=== PATIENT | female | born 1935 | race Caucasian/White ===

== ENCOUNTER 2017-07-22 20:23 | Observation (INO) | payer MEDICARE, SELFPAY ==
[~2017-07-22] VITALS: Ht 165.1 cm; Wt 86.2 kg
[~2017-07-22 20:23] MED LIST: ACET325 PO; BI-EST TOP; BIEST TOP; CHOL10002 PO; CODACE30 PO; COLE625 PO; CRUTCH2 USE; DOCU100 PO; ESTR.9; HYDACE5 PO; HYDR1TAB94 PO; L-LYSINE500 MG PO; MELA3 PO; METO100ER; Nexium40 MG PO; Norco 5-325 Ta1 EACH PO; OXYC5 PO; PROM25 PO; RXHYDACE PO; SERT100 PO; VENL75; VITAMIN B12 SPRAY SL; WARF4 PO; XARELTO10 MG PO; [UNRECOGNIZED DRUG - CODE] PO; [UNRECOGNIZED DRUG - OTHER] PO; [UNRECOGNIZED DRUG - OTHER] PO; [UNRECOGNIZED DRUG - REMARK]
[2017-07-22] MEDS ORDERED: Flonase 0.05% N16 GM (20:34)
[2017-07-22 20:49] LABS: BASOPHILS ABSOLUTE AUTO 0.01 K/mm3 (0.00-0.23); BASOPHILS PERCENT AUTO 0 % (0-2); EOSINOPHILS PERCENT AUTO 0 % (0-6); Hematocrit 41.5 % (33.0-51.0); Hemoglobin 13.1 g/dL (11.5-16.0); IMMATURE GRAN PERCENT AUTO 0 % (0-1); LYMPHOCYTES ABSOLUTE AUTO 0.49 K/mm3 (0.84-5.20); LYMPHOCYTES PERCENT AUTO 15 % (21-46); MONOCYTES ABSOLUTE AUTO 0.25 K/mm3 (0.16-1.47); MONOCYTES PERCENT AUTO 8 % (4-13); Mean Corpuscular HGB 27.5 pg (26.0-34.0); Mean Corpuscular HGB Conc 31.6 g/dL (31.5-36.5); Mean Corpuscular Volume 87 fL (80-100); Mean Platelet Volume 11.5 fL (9.1-12.4); NEUTROPHILS ABSOLUTE AUTO 2.59 K/mm3 (1.96-9.15); NEUTROPHILS PERCENT AUTO 78 % (41-73); Platelet Count 146 K/mm3 (150-400); RDW Coefficient Variation 14.3 % (11.7-14.2); Red Blood Cell Count 4.76 M/mm3 (3.80-5.20); White Blood Cell Count 3.34 K/mm3 (4.00-11.30)
[2017-07-22 20:59] LABS: PCO2 Arterial 36.5 mmHg (35-45); PO2 Arterial 58.4 mmHg (80-100); pH Blood Arterial 7.43 (7.35-7.45)
[2017-07-22 21:05] LABS: Alanine Aminotransfer (ALT/SGP 19 U/L (12-78); Albumin, Blood 3.5 g/dL (3.4-5.0); Albumin/Globulin Ratio 1.1 (0.8-1.8); Alk Phos 72 U/L (50-136); Anion Gap 10 mmol/L (6-16); Aspartate Aminotrans (AST/SGOT 19 U/L (12-37); Bilirubin, Total 0.4 mg/dL (0.1-1.0); Blood Urea Nitrogen 10 mg/dL (8-24); Bun/Creatinine Ratio 12.4 (12.0-20.0); CO2, Blood 25 mmol/L (21-32); Calcium, Blood 8.2 mg/dL (8.5-10.1); Chloride, Blood 103 mmol/L (98-108); Globulin, Blood 3.3 g/dL (2.2-4.0); Glomerular Filtration Rate >60 (60-); Glucose, Blood 110 mg/dL (70-99); Potassium, Blood 3.2 mmol/L (3.5-5.5); Sodium, Blood 138 mmol/L (136-145); Total Protein, Blood 6.8 g/dL (6.4-8.2); Troponin I 0.034 ng/mL (0.000-0.040)
[2017-07-22 21:10] LABS: Influenza A Negative (NEGATIVE); Influenza B Positive (NEGATIVE)
[2017-07-23 09:57] LABS: BASOPHILS ABSOLUTE AUTO 0.01 K/mm3 (0.00-0.23); BASOPHILS PERCENT AUTO 0 % (0-2); EOSINOPHILS PERCENT AUTO 0 % (0-6); Hematocrit 39.8 % (33.0-51.0); Hemoglobin 12.9 g/dL (11.5-16.0); IMMATURE GRAN ABSOLUTE AUTO 0.01 K/mm3 (0.00-0.10); IMMATURE GRAN PERCENT AUTO 0 % (0-1); LYMPHOCYTES ABSOLUTE AUTO 0.51 K/mm3 (0.84-5.20); LYMPHOCYTES PERCENT AUTO 20 % (21-46); MONOCYTES ABSOLUTE AUTO 0.24 K/mm3 (0.16-1.47); MONOCYTES PERCENT AUTO 10 % (4-13); Mean Corpuscular HGB 27.9 pg (26.0-34.0); Mean Corpuscular HGB Conc 32.4 g/dL (31.5-36.5); Mean Corpuscular Volume 86 fL (80-100); Mean Platelet Volume 11.2 fL (9.1-12.4); NEUTROPHILS ABSOLUTE AUTO 1.74 K/mm3 (1.96-9.15); NEUTROPHILS PERCENT AUTO 69 % (41-73); Platelet Count 121 K/mm3 (150-400); RDW Coefficient Variation 14.5 % (11.7-14.2); RDW Standard Deviation 45.8 fL (35.1-46.3); Red Blood Cell Count 4.62 M/mm3 (3.80-5.20); White Blood Cell Count 2.51 K/mm3 (4.00-11.30)
[2017-07-23 10:12] LABS: Alanine Aminotransfer (ALT/SGP 18 U/L (12-78); Albumin, Blood 3.4 g/dL (3.4-5.0); Albumin/Globulin Ratio 1.1 (0.8-1.8); Alk Phos 70 U/L (50-136); Anion Gap 9 mmol/L (6-16); Aspartate Aminotrans (AST/SGOT 25 U/L (12-37); Bilirubin, Total 0.5 mg/dL (0.1-1.0); Blood Urea Nitrogen 12 mg/dL (8-24); Bun/Creatinine Ratio 16.3 (12.0-20.0); CO2, Blood 23 mmol/L (21-32); Calcium, Blood 8.2 mg/dL (8.5-10.1); Chloride, Blood 106 mmol/L (98-108); Creatinine, Blood 0.74 mg/dL (0.40-1.00); Globulin, Blood 3.1 g/dL (2.2-4.0); Glomerular Filtration Rate >60 (60-); Glucose, Blood 93 mg/dL (70-99); Potassium, Blood 3.4 mmol/L (3.5-5.5); Sodium, Blood 138 mmol/L (136-145); Total Protein, Blood 6.5 g/dL (6.4-8.2)
[2017-07-23] MEDS ORDERED: ACET325 PO (12:56)
[2017-07-23] MEDS ORDERED: ONDA4ODT MM (12:56)
[2017-07-23] MEDS ORDERED: OSEL75CA PO (12:56)
== END 2017-07-23 13:24 | disposition home or self-care (01) ==
LOC: ER 20:23 → ERHOLD 20:24 → ER 21:39 → ERHOLD 07-23 13:24
PROVIDERS: Emergency Medicine; Internal Medicine
DX: J10.1 Influenza due to other identified influenza virus with other respiratory manifestations (principal); J96.01 Acute respiratory failure with hypoxia; J44.9 Chronic obstructive pulmonary disease, unspecified; F41.9 Anxiety disorder, unspecified; F32.9 Major depressive disorder, single episode, unspecified; K21.9 Gastro-esophageal reflux disease without esophagitis; E78.5 Hyperlipidemia, unspecified; G47.33 Obstructive sleep apnea (adult) (pediatric); I47.2 Ventricular tachycardia; Z87.01 Personal history of pneumonia (recurrent); Z98.890 Other specified postprocedural states; Z95.0 Presence of cardiac pacemaker; Z90.49 Acquired absence of other specified parts of digestive tract; Z79.899 Other long term (current) drug therapy; Z88.2 Allergy status to sulfonamides; Z88.8 Allergy status to other drugs, medicaments and biological substances
CPT/HCPCS: 36415; 36600; 71046; 80053; 82803; 83605; 84484; 85025; 87040; 87804; 93005; 93010; 96372; 99285; J1650; J3480; J7030

== ENCOUNTER → 2017-12-19 | Outpatient (CLI) | payer MEDICARE, SELFPAY ==
[~2017-12-19] MED LIST changes: +Flonase 0.05% N16 GM; +ONDA4ODT MM; +OSEL75CA PO
[2017-12-20 14:48] LABS: Stool Occult Bld Immuno 1 Negative (NEGATIVE); Stool Occult Bld Immuno 2 Negative (NEGATIVE)
== END | disposition home or self-care (01) ==
LOC: OLS 16:40 → LAB SHORT 16:40
PROVIDERS: Internal Medicine Gastroenterology
DX: K57.90 Diverticulosis of intestine, part unspecified, without perforation or abscess without bleeding (principal); Z86.010 Personal history of colon polyps
CPT/HCPCS: 82274

== ENCOUNTER 2017-12-27 11:42 | Day surgery (SDC) | payer MEDICARE ==
[~2017-12-27] VITALS: Ht 165.1 cm; Wt 84.1 kg
== END 2017-12-27 14:30 | disposition home or self-care (01) ==
LOC: ORSCSDS 11:42
PROVIDERS: Internal Medicine Gastroenterology
PROC: 0D758ZZ Dilation of Esophagus, Via Natural or Artificial Opening Endoscopic (ICD-10-PCS; principal; 2017-12-27 13:00)
PROC: 0DB68ZX Excision of Stomach, Via Natural or Artificial Opening Endoscopic, Diagnostic (ICD-10-PCS; principal; 2017-12-27 13:00)
PROC: 0DB58ZX Excision of Esophagus, Via Natural or Artificial Opening Endoscopic, Diagnostic (ICD-10-PCS; principal; 2017-12-27 13:00)
DX: R13.14 Dysphagia, pharyngoesophageal phase (principal); K31.7 Polyp of stomach and duodenum; Z87.11 Personal history of peptic ulcer disease; G47.33 Obstructive sleep apnea (adult) (pediatric); Z79.899 Other long term (current) drug therapy
CPT/HCPCS: 87081; 88305; 88342; J7120

== ENCOUNTER 2019-06-01 18:43 | Emergency (ER) | payer MEDICARE ==
[~2019-06-01] VITALS: Ht 165.1 cm; Wt 87.5 kg
[2019-06-01] MEDS ORDERED: MELATONIN5 M1 (19:37)
[2019-06-01 19:55] LABS: BASOPHILS ABSOLUTE AUTO 0.01 K/mm3 (0.00-0.23); BASOPHILS PERCENT AUTO 0 % (0-2); EOSINOPHILS ABSOLUTE AUTO 0.02 K/mm3 (0.00-0.68); EOSINOPHILS PERCENT AUTO 1 % (0-6); Hematocrit 47.1 % (33.0-51.0); IMMATURE GRAN PERCENT AUTO 0 % (0-1); LYMPHOCYTES ABSOLUTE AUTO 1.14 K/mm3 (0.84-5.20); LYMPHOCYTES PERCENT AUTO 26 % (21-46); MONOCYTES ABSOLUTE AUTO 0.38 K/mm3 (0.16-1.47); MONOCYTES PERCENT AUTO 9 % (4-13); Mean Corpuscular HGB 29.6 pg (26.0-34.0); Mean Corpuscular HGB Conc 31.8 g/dL (31.5-36.5); Mean Corpuscular Volume 93 fL (80-100); Mean Platelet Volume 11.4 fL (9.1-12.4); NEUTROPHILS ABSOLUTE AUTO 2.78 K/mm3 (1.96-9.15); NEUTROPHILS PERCENT AUTO 64 % (41-73); Platelet Count 202 K/mm3 (150-400); RDW Coefficient Variation 12.9 % (11.7-14.2); RDW Standard Deviation 44.2 fL (35.1-46.3); Red Blood Cell Count 5.06 M/mm3 (3.80-5.20); White Blood Cell Count 4.33 K/mm3 (4.00-11.30)
[2019-06-01 20:22] LABS: Source, Urine Clean Catch
[2019-06-01 20:24] LABS: Alanine Aminotransfer (ALT/SGP 24 U/L (12-78); Albumin/Globulin Ratio 1.1 (0.8-1.8); Alk Phos 90 U/L (50-136); Anion Gap 7 mmol/L (6-16); Aspartate Aminotrans (AST/SGOT 25 U/L (12-37); Bilirubin, Total 0.6 mg/dL (0.1-1.0); Blood Urea Nitrogen 20 mg/dL (8-24); Bun/Creatinine Ratio 22.7 (12.0-20.0); CO2, Blood 25 mmol/L (21-32); Calcium, Blood 9.4 mg/dL (8.5-10.1); Chloride, Blood 110 mmol/L (98-108); Creatinine, Blood 0.88 mg/dL (0.40-1.00); Globulin, Blood 3.6 g/dL (2.2-4.0); Glomerular Filtration Rate >60 (60-); Glucose, Blood 98 mg/dL (70-99); Potassium, Blood 3.5 mmol/L (3.5-5.5); Sodium, Blood 142 mmol/L (136-145); Total Protein, Blood 7.6 g/dL (6.4-8.2)
[2019-06-01 20:27] LABS: Blood, Urine 1+ (Neg); Glucose Qualitative, Urine Neg (Neg); Ketones, Urine 1+ (Neg); Leukocyte Esterase, Urine 2+ (Neg); Nitrite, Urine Pos (Neg); Protein, Urine 2+ (Neg); Specific Gravity, Urine 1.025 (1.003-1.022); Urobilinogen, Urine 1+ (Normal)
[2019-06-01 20:34] LABS: Appearance, Urine Cloudy (Clear); Bilirubin, Urine 1+ (Neg); Color, Urine Yellow (P-Yellow)
[2019-06-01 20:35] LABS: Bacteria Many /hpf; Mucus Mod (0-Heavy); Red Blood Cells, Urine 0-2 /hpf (0-2); Squamous Epithelial Cells Mod /hpf (Few)
[2019-06-01] MEDS ORDERED: Zithromax250 MG PO (20:54)
== END 2019-06-01 21:43 | disposition home or self-care (01) ==
LOC: ER 18:43
PROVIDERS: Physician Assistant
DX: J40 Bronchitis, not specified as acute or chronic (principal); Z88.2 Allergy status to sulfonamides; Z88.8 Allergy status to other drugs, medicaments and biological substances; Z79.899 Other long term (current) drug therapy; I10 Essential (primary) hypertension; F41.9 Anxiety disorder, unspecified
CPT/HCPCS: 36415; 71046; 80053; 81001; 83690; 85025; 87077; 87086; 87186; 99283-25

== ENCOUNTER → 2019-06-23 | Outpatient (CLI) | payer MEDICARE ==
[~2019-06-23] MED LIST changes: +MELATONIN5 M1; +Zithromax250 MG PO
[2019-06-23 12:59] LABS: Bilirubin, Urine Neg (Neg); Blood, Urine Neg (Neg); Glucose Qualitative, Urine Neg (Neg); Ketones, Urine Neg (Neg); Leukocyte Esterase, Urine Neg (Neg); Nitrite, Urine Neg (Neg); Protein, Urine Neg (Neg); Urobilinogen, Urine NORM (Normal)
[2019-06-23 13:02] LABS: Appearance, Urine Clear (Clear); Color, Urine Yellow (P-Yellow)
== END | disposition home or self-care (01) ==
LOC: LAB SRC 07:45 → LAB SHORT 07:45
PROVIDERS: Physician Assistant
DX: N39.0 Urinary tract infection, site not specified (principal)
CPT/HCPCS: 81003

== ENCOUNTER 2020-04-23 19:00 | Emergency (ER) | payer MEDICARE ==
[~2020-04-23] VITALS: Ht 165.1 cm; Wt 85.7 kg
[2020-04-23] MEDS ORDERED: LOSARTAN POTASS25 M2 PO (20:08)
== END 2020-04-23 22:20 | disposition home or self-care (01) ==
LOC: ER 19:00
DX: J06.9 Acute upper respiratory infection, unspecified (principal); I10 Essential (primary) hypertension; Z20.828 Contact with and (suspected) exposure to other viral communicable diseases; F41.9 Anxiety disorder, unspecified; J44.9 Chronic obstructive pulmonary disease, unspecified; Z95.0 Presence of cardiac pacemaker; Z88.2 Allergy status to sulfonamides; Z88.8 Allergy status to other drugs, medicaments and biological substances; Z79.899 Other long term (current) drug therapy
CPT/HCPCS: 71045; 99283-25; U0004

== ENCOUNTER 2020-09-05 20:58 | Emergency (ER) | payer MEDICARE ==
[~2020-09-05] VITALS: Ht 165.1 cm; Wt 90.7 kg
[~2020-09-05 20:58] MED LIST changes: +LOSARTAN POTASS25 M2 PO
[2020-09-05 22:20] LABS: BASOPHILS ABSOLUTE AUTO 0.04 K/mm3 (0.00-0.23); BASOPHILS PERCENT AUTO 1 % (0-2); EOSINOPHILS ABSOLUTE AUTO 0.09 K/mm3 (0.00-0.68); EOSINOPHILS PERCENT AUTO 2 % (0-6); Hematocrit 41.6 % (33.0-51.0); Hemoglobin 13.7 g/dL (11.5-16.0); IMMATURE GRAN ABSOLUTE AUTO 0.01 K/mm3 (0.00-0.10); IMMATURE GRAN PERCENT AUTO 0 % (0-1); LYMPHOCYTES ABSOLUTE AUTO 1.74 K/mm3 (0.84-5.20); LYMPHOCYTES PERCENT AUTO 32 % (21-46); MONOCYTES ABSOLUTE AUTO 0.41 K/mm3 (0.16-1.47); MONOCYTES PERCENT AUTO 8 % (4-13); Mean Corpuscular HGB 29.5 pg (26.0-34.0); Mean Corpuscular HGB Conc 32.9 g/dL (31.5-36.5); Mean Corpuscular Volume 90 fL (80-100); Mean Platelet Volume 11.6 fL (9.1-12.4); NEUTROPHILS ABSOLUTE AUTO 3.09 K/mm3 (1.96-9.15); NEUTROPHILS PERCENT AUTO 58 % (41-73); Platelet Count 231 K/mm3 (150-400); RDW Coefficient Variation 12.6 % (11.7-14.2); RDW Standard Deviation 41.2 fL (35.1-46.3); Red Blood Cell Count 4.65 M/mm3 (3.80-5.20); White Blood Cell Count 5.38 K/mm3 (4.00-11.30)
[2020-09-05 22:41] LABS: Alanine Aminotransfer (ALT/SGP 28 U/L (12-78); Albumin, Blood 3.6 g/dL (3.4-5.0); Alk Phos 92 U/L (50-136); Anion Gap 6 mmol/L (6-16); Aspartate Aminotrans (AST/SGOT 17 U/L (12-37); Bilirubin, Total 0.4 mg/dL (0.1-1.0); Blood Urea Nitrogen 21 mg/dL (8-24); Bun/Creatinine Ratio 26.4 (12.0-20.0); CO2, Blood 26 mmol/L (21-32); Calcium, Blood 9.1 mg/dL (8.5-10.1); Chloride, Blood 111 mmol/L (98-108); Globulin, Blood 3.5 g/dL (2.2-4.0); Glomerular Filtration Rate >60 (60-); Glucose, Blood 102 mg/dL (70-99); Potassium, Blood 3.8 mmol/L (3.5-5.5); Sodium, Blood 143 mmol/L (136-145); Total Protein, Blood 7.1 g/dL (6.4-8.2); Troponin I <0.015 ng/mL (0.000-0.040)
[2020-09-05] MEDS ORDERED: THERA-D2000 UNIT PO (23:45)
[2020-09-05] MEDS ORDERED: CENTRUM SILVER1 EAC2 PO (23:46)
== END 2020-09-06 00:15 | disposition home or self-care (01) ==
LOC: ER 20:58
PROVIDERS: Physician Assistant
DX: G43.109 Migraine with aura, not intractable, without status migrainosus (principal); I10 Essential (primary) hypertension; J44.9 Chronic obstructive pulmonary disease, unspecified; Z88.2 Allergy status to sulfonamides; Z88.8 Allergy status to other drugs, medicaments and biological substances; Z79.899 Other long term (current) drug therapy
CPT/HCPCS: 36415; 70450; 71046; 80053; 84484; 85025; 93005; 93010; 99284-25

== ENCOUNTER 2020-12-25 23:17 | Inpatient (IN) | payer MEDICARE ==
[~2020-12-25] VITALS: Ht 172.7 cm; Wt 88.7 kg
[~2020-12-25 23:17] MED LIST changes: +CENTRUM SILVER1 EAC2 PO; +THERA-D2000 UNIT PO
[2020-12-25 23:39] LABS: BASOPHILS ABSOLUTE AUTO 0.09 K/mm3 (0.00-0.23); BASOPHILS PERCENT AUTO 1 % (0-2); EOSINOPHILS ABSOLUTE AUTO 0.26 K/mm3 (0.00-0.68); EOSINOPHILS PERCENT AUTO 2 % (0-6); Hematocrit 48.7 % (33.0-51.0); IMMATURE GRAN ABSOLUTE AUTO 0.05 K/mm3 (0.00-0.10); IMMATURE GRAN PERCENT AUTO 0 % (0-1); LYMPHOCYTES ABSOLUTE AUTO 6.65 K/mm3 (0.84-5.20); LYMPHOCYTES PERCENT AUTO 49 % (21-46); MONOCYTES ABSOLUTE AUTO 0.62 K/mm3 (0.16-1.47); MONOCYTES PERCENT AUTO 5 % (4-13); Mean Corpuscular HGB 28.7 pg (26.0-34.0); Mean Corpuscular HGB Conc 30.8 g/dL (31.5-36.5); Mean Corpuscular Volume 93 fL (80-100); NEUTROPHILS ABSOLUTE AUTO 5.87 K/mm3 (1.96-9.15); NEUTROPHILS PERCENT AUTO 43 % (41-73); Platelet Count 288 K/mm3 (150-400); RDW Coefficient Variation 13.5 % (11.7-14.2); RDW Standard Deviation 46.1 fL (35.1-46.3); Red Blood Cell Count 5.23 M/mm3 (3.80-5.20); White Blood Cell Count 13.54 K/mm3 (4.00-11.30)
[2020-12-25 23:41] LABS: Base Excess Venous -9.2 mmol/L; PCO2 Venous 47.7 mmHg (38-42); PO2 Venous 70.4 mmHg (38-42)
[2020-12-25] MEDS ORDERED: MELA3 PO (23:57)
[2020-12-25 23:59] LABS: Alanine Aminotransfer (ALT/SGP 31 U/L (12-78); Albumin, Blood 3.9 g/dL (3.4-5.0); Alk Phos 115 U/L (50-136); Anion Gap 10 mmol/L (6-16); Aspartate Aminotrans (AST/SGOT 21 U/L (12-37); Bilirubin, Total 0.7 mg/dL (0.1-1.0); Blood Urea Nitrogen 16 mg/dL (8-24); Bun/Creatinine Ratio 18.9 (12.0-20.0); CO2, Blood 22 mmol/L (21-32); Calcium, Blood 8.7 mg/dL (8.5-10.1); Chloride, Blood 110 mmol/L (98-108); Creatinine, Blood 0.85 mg/dL (0.40-1.00); Globulin, Blood 3.8 g/dL (2.2-4.0); Glomerular Filtration Rate >60 (60-); Glucose, Blood 296 mg/dL (70-99); Sodium, Blood 142 mmol/L (136-145); Total Protein, Blood 7.7 g/dL (6.4-8.2); Troponin I 0.019 ng/mL (0.000-0.040)
[2020-12-26 04:14] LABS: BASOPHILS ABSOLUTE AUTO 0.02 K/mm3 (0.00-0.23); BASOPHILS PERCENT AUTO 0 % (0-2); EOSINOPHILS PERCENT AUTO 0 % (0-6); Hematocrit 38.7 % (33.0-51.0); Hemoglobin 12.3 g/dL (11.5-16.0); IMMATURE GRAN ABSOLUTE AUTO 0.03 K/mm3 (0.00-0.10); IMMATURE GRAN PERCENT AUTO 0 % (0-1); LYMPHOCYTES ABSOLUTE AUTO 0.59 K/mm3 (0.84-5.20); LYMPHOCYTES PERCENT AUTO 6 % (21-46); MONOCYTES PERCENT AUTO 6 % (4-13); Mean Corpuscular HGB 28.6 pg (26.0-34.0); Mean Corpuscular HGB Conc 31.8 g/dL (31.5-36.5); Mean Corpuscular Volume 90 fL (80-100); Mean Platelet Volume 12.1 fL (9.1-12.4); NEUTROPHILS ABSOLUTE AUTO 8.41 K/mm3 (1.96-9.15); NEUTROPHILS PERCENT AUTO 87 % (41-73); Platelet Count 189 K/mm3 (150-400); RDW Coefficient Variation 13.6 % (11.7-14.2); RDW Standard Deviation 44.6 fL (35.1-46.3); White Blood Cell Count 9.65 K/mm3 (4.00-11.30)
[2020-12-26 04:33] LABS: Alanine Aminotransfer (ALT/SGP 29 U/L (12-78); Albumin, Blood 3.5 g/dL (3.4-5.0); Albumin/Globulin Ratio 1.1 (0.8-1.8); Alk Phos 81 U/L (50-136); Anion Gap 7 mmol/L (6-16); Aspartate Aminotrans (AST/SGOT 15 U/L (12-37); Bilirubin, Total 0.6 mg/dL (0.1-1.0); Blood Urea Nitrogen 17 mg/dL (8-24); Bun/Creatinine Ratio 18.9 (12.0-20.0); CO2, Blood 26 mmol/L (21-32); Calcium, Blood 8.4 mg/dL (8.5-10.1); Chloride, Blood 111 mmol/L (98-108); Globulin, Blood 3.2 g/dL (2.2-4.0); Glomerular Filtration Rate >60 (60-); Glucose, Blood 140 mg/dL (70-99); Potassium, Blood 3.5 mmol/L (3.5-5.5); Sodium, Blood 144 mmol/L (136-145); Total Protein, Blood 6.7 g/dL (6.4-8.2)
[2020-12-26 04:39] LABS: Source, Urine Catheter
[2020-12-26 04:41] LABS: Appearance, Urine Clear (Clear); Bilirubin, Urine Neg (Neg); Blood, Urine 1+ (Neg); Color, Urine Amber (P-Yellow); Glucose Qualitative, Urine Neg (Neg); Ketones, Urine Neg (Neg); Leukocyte Esterase, Urine Neg (Neg); Nitrite, Urine Neg (Neg); Protein, Urine 3+ (Neg); Specific Gravity, Urine 1.025 (1.003-1.022); Urobilinogen, Urine NORM (Normal)
[2020-12-26 04:46] LABS: Bacteria Many /hpf; Red Blood Cells, Urine 0-2 /hpf (0-2); Squamous Epithelial Cells Not Seen /hpf (Few)
[2020-12-26 04:47] LABS: Calcium Oxalate Crystals Mod /hpf; Hyaline Casts 0-2 /lpf (0-2)
--- NOTE | 2020-12-26 07:06 | NUR ---
ASSUMPTION OF CARE PT ARRIVED TO ICU VIA GURNEY, TRANSFERRED TO ICU BED VIA SLIDER SHEET. PT FULLY ALERT AND ORIENTED UPON ARRIVAL. DENYING CHEST PAIN OR SOB WITH BIPAP IN PLACE. BIPAP SETTINGS 04/01 @ 30% c O2 SATS >95%. BILATERAL AC IV'S FLUSHED, BOTH PATENT, SALINE LOC AT THIS TIME. TEMP VILLA CATH PATENT, DRAINING CLEAR/YELLOW URINE. SKIN OVERALL C/D/I. ATTEMPTED TO INTERROGATE PACEMAKER, BUT NEED A youwho COMPATIBLE INTERROGATOR. RELAYED MESSAGE TO ONCOMING NURSE TO CONTACT THE [facility]. NO OTHER COMPLAINTS FROM PT AT THIS TIME, REPORT TO ONCOMING NURSE. PTS DAUGHTERS AT BEDSIDE AT TIME OF ADMIT, WISH TO STAY AT BEDSIDE FOR MORAL SUPPORT AND TO ASSIST WITH QUESTIONS. KAT ALSO REQUESTING FOR HER SPOUSE WHOM WAS RECENTLY DIAGNOSED WITH DEMENTIA TO COME VISIT, FAMILY UPDATED OF CURRENT VISITATION POLICY.
[2020-12-26 08:00] LABS: Troponin I 0.113 ng/mL (0.000-0.040)
[2020-12-26 11:46] LABS: Anion Gap 8 mmol/L (6-16); Blood Urea Nitrogen 16 mg/dL (8-24); Bun/Creatinine Ratio 18.6 (12.0-20.0); CO2, Blood 27 mmol/L (21-32); Calcium, Blood 8.6 mg/dL (8.5-10.1); Chloride, Blood 110 mmol/L (98-108); Creatinine, Blood 0.86 mg/dL (0.40-1.00); Glomerular Filtration Rate >60 (60-); Glucose, Blood 108 mg/dL (70-99); Magnesium, Blood 2.1 mg/dL (1.6-2.4); Potassium, Blood 3.4 mmol/L (3.5-5.5); Sodium, Blood 145 mmol/L (136-145)
--- NOTE | 2020-12-26 12:50 | NUR ---
DICD CHECKED PER HOSPITALIST ORDER, PRINTOUTS PLACED IN PT'S CHART, REPORT ROUTED TO DR ARTHUR THRU [facility]
--- NOTE | 2020-12-26 14:57 | NUR ---
CARDIOLOGY PT HAS A BASELINE OF LEFT BBB AND INTERMITTEN AFIB LEAVING THE PT WITH OCCASSIONAL PAROXSAMAL V-TACH. DR. Kapoor HAS BEEN CONSULTED AND HAS DETERMINED THE PT SHOULD HAVE A LEXISCAN STRESS TEST AND IS TO BE STARTED ON A BETA GIANNA. THE STRESS TEST IS SCHEDULED FOR TOMORROW 12/27/20 WITH [facility].
[2020-12-26 16:01] LABS: Troponin I 0.071 ng/mL (0.000-0.040)
--- NOTE | 2020-12-26 16:35 | NUR ---
RECEIVED PT FROM ICU.
--- NOTE | 2020-12-26 16:50 | NUR ---
TRANSFER TO MEDICAL FLOOR REPORT WAS GIVEN TO IAIN SINGH. PT WAS TRANSFERRED TO MEDICAL FLOOR AT APPROXIMATELY 1625 VIA WHEELCHAIR. PT WAS TRANSFERRED WITH ALL OF HER PERSONAL BELONGINGS, CHART AND MEDICATIONS AND ACCOMPANIED BY IAIN CASTILLO AND HER DAUGHTER JARON. PT DENIED CP AND SOB AT TIME OF TRANSFER. PT IS SCHEDULED FOR STRESS TEST TOMORROW AND HAS BEEN STARTED ON A BETA-GIANNA.
--- NOTE | 2020-12-26 17:44 | NUR ---
SHIFT SUMMARY PT TRANSFERRED FROM ICU BY WHEELCHAIR. PT ON 4 LITERS O2 VIA NC. VILLA IN PLACE AND DRAINING TO GRAVITY. WAS ABLE TO TRANSFER TO THE BED WITH A PERSON ASSIST. FAMILY AT BEDSIDE. VSS. RESTING COMFORTABLY IN BED WITH HER CALL LIGHT IN REACH.
[2020-12-27 04:44] LABS: BASOPHILS ABSOLUTE AUTO 0.03 K/mm3 (0.00-0.23); BASOPHILS PERCENT AUTO 0 % (0-2); EOSINOPHILS ABSOLUTE AUTO 0.11 K/mm3 (0.00-0.68); EOSINOPHILS PERCENT AUTO 2 % (0-6); Hematocrit 38.5 % (33.0-51.0); Hemoglobin 12.2 g/dL (11.5-16.0); IMMATURE GRAN ABSOLUTE AUTO 0.01 K/mm3 (0.00-0.10); IMMATURE GRAN PERCENT AUTO 0 % (0-1); LYMPHOCYTES ABSOLUTE AUTO 1.61 K/mm3 (0.84-5.20); LYMPHOCYTES PERCENT AUTO 24 % (21-46); MONOCYTES ABSOLUTE AUTO 0.45 K/mm3 (0.16-1.47); MONOCYTES PERCENT AUTO 7 % (4-13); Mean Corpuscular HGB 28.3 pg (26.0-34.0); Mean Corpuscular HGB Conc 31.7 g/dL (31.5-36.5); Mean Corpuscular Volume 89 fL (80-100); Mean Platelet Volume 11.7 fL (9.1-12.4); NEUTROPHILS ABSOLUTE AUTO 4.49 K/mm3 (1.96-9.15); NEUTROPHILS PERCENT AUTO 67 % (41-73); Platelet Count 183 K/mm3 (150-400); RDW Coefficient Variation 13.4 % (11.7-14.2); RDW Standard Deviation 44.1 fL (35.1-46.3); Red Blood Cell Count 4.31 M/mm3 (3.80-5.20)
[2020-12-27 05:01] LABS: Anion Gap 4 mmol/L (6-16); Blood Urea Nitrogen 19 mg/dL (8-24); Bun/Creatinine Ratio 23.1 (12.0-20.0); CO2, Blood 28 mmol/L (21-32); Calcium, Blood 8.5 mg/dL (8.5-10.1); Chloride, Blood 110 mmol/L (98-108); Creatinine, Blood 0.82 mg/dL (0.40-1.00); Glomerular Filtration Rate >60 (60-); Glucose, Blood 109 mg/dL (70-99); Potassium, Blood 3.5 mmol/L (3.5-5.5); Sodium, Blood 142 mmol/L (136-145)
--- NOTE | 2020-12-27 14:42 | NUR ---
Patient is lying in bed and alert. She immediately tells me about her health issues and the struggle the last couple of days have been, Her was in the hospital at the same time as the patient (he is home now and feeling better) but she also discloses the fact that he is struggling with a newer on-set of damentia and he is frustrated most of the time. I normalize patient's experience and provide therapeuitc listening and a calming presence. Patient responds well and shows signs of an elevated mood. I will continue to remain available to patient and family.
--- NOTE | 2020-12-27 16:49 | NUR ---
SHIFT SUMMARY: NO ACUTE EVENTS. NO EVENTS ON TELEMETRY, SR WITH PACED BEATS IN THE 60'S. WEARING O2 @ 2 L/MIN NC, LUNGS WITH CRACKLES IN BILATERAL BASES. INCONTINENT OF B&B. VILLA CATHETER REMOVED THIS MORNING, WAS LEAKING AND CAUSING PT DISCOMFORT. CBG < 150, NO INSULIN COVERAGE NEEDED. HAD FIRST PART OF NUCLEAR STRESS TEST THIS AFTERNOON, WILL HAVE SECOND PART EARLY TOMORROW MORNING. VERBALIZED UNDERSTANDING OF INSTRUCTIONS REGARDING FOOD AND WATER AFTER MN. DENIED PAIN.
--- NOTE | 2020-12-28 04:46 | NUR ---
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 Denies CP ir SOB, home o2 2 l nc for HASMUKH set up. PT's Spouse recently became ill, SW referral to assess for need for assist at home. Incontenebt of urine & voids post blank cath removal. Diuresis for CHF.
[2020-12-28 05:50] LABS: Albumin, Blood 3.3 g/dL (3.4-5.0); Anion Gap 5 mmol/L (6-16); Blood Urea Nitrogen 21 mg/dL (8-24); Bun/Creatinine Ratio 27.6 (12.0-20.0); CO2, Blood 27 mmol/L (21-32); Calcium, Blood 9.1 mg/dL (8.5-10.1); Chloride, Blood 108 mmol/L (98-108); Creatinine, Blood 0.76 mg/dL (0.40-1.00); Glomerular Filtration Rate >60 (60-); Glucose, Blood 108 mg/dL (70-99); Potassium, Blood 3.8 mmol/L (3.5-5.5); Sodium, Blood 140 mmol/L (136-145)
--- NOTE | 2020-12-28 15:40 | NUR ---
Patient is lying in bed and alert. Patient's son, Landry is bedside. Patient tells me about how pleased she is with the progress she has made and voices appreciation for the staff for their care. Patient then talks at length about how worried she is about her spouse, Enrique. I normalize patient's experience and provide therapeutic listening, recitation of scripture and prayer. Patient responds well and shows signs of increased peace. Patient expresses gratitude for the visit.
--- NOTE | 2020-12-28 18:18 | NUR ---
SHIFT SUMMARY: NO ACUTE EVENTS. NO EVENTS ON TELEMTRY, PACED AT 60 BPM. DENIED PAIN. COMPLETED SECOND PART OF STRESS TEST THIS MORNING. AMBULATED IN HALLWAY WITH PHYSICAL THERAPY TODAY, STILL PRETTY WEAK AND DYSPNEIC. BREATHING IS EASIER, WAS ABLE TO LAY FLAT IN BED WHILE NAPPING THIS AFTERNOON. APPETITE IMPROVING. GETTING TO BR WITH SBA AND FWW.
--- NOTE | 2020-12-28 23:30 | NUR ---
DR MANJARREZ called earlier with update on urine culture Ecoli & no abx ordered. PT has urinary incont wears pullups. Denies pain or burning with urination. 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 PT CO headache wants tylenol So DR Manjarrez called & order obtained for PRN tylenol 650 mg. Will administer.
--- NOTE | 2020-12-29 04:50 | NUR ---
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 Pleasant with mild forgetfulness. Tolerating diet & activity, Completed cardiac stress test. Spouse is currently ill PT has DTR who lives near them who is currently assist with Spouses care, SW referral made.
[2020-12-29] MEDS ORDERED: METO25 PO (13:40)
[2020-12-29] MEDS ORDERED: FURO20 PO (13:41)
--- NOTE | 2020-12-29 15:12 | NUR ---
Patient is in the DC process but tells about the complications at home concerning her family unit. Patient talks about all that her spouse is going through and her concerns for him. 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 Because of her daughter she has derrick that she will be successful as she will DC to home. I normalize patient's experience and provide therapeutic listening and a calming presence.
--- NOTE | 2020-12-29 15:56 | NUR ---
PT DISCHARGED THE PT VERBALIZED UNDERSTANDING OF THE DC INSTRUCTIONS, THE PTS PRESCRIPTIONS WERE FAXED TO [facility] REQUESTED, A FOLLOW UP WITH HER PCP WAS SCHEDULED PRIOR TO DC. THE PT WAS TRANSFERED VIA WHEELCHAIR ACCOMPANIED BY HER FAMILY. PT WAS A/OX4 AT THE TIME OF DC AND BREATHING EASILY ON RA
== END 2020-12-29 15:50 | disposition home or self-care (01) | DRG 291 ==
LOC: ER 23:17 → ERHOLD 12-26 02:25 → MEDS 12-26 02:25 → ICUW 12-26 02:25 → MEDS 12-26 16:19
PROVIDERS: Internal Medicine; Student in an Organized Health Care Education/Training Program; ADMIT Internal Medicine
PROC: 5A09357 Assistance with Respiratory Ventilation, Less than 24 Consecutive Hours, Continuous Positive Airway Pressure (ICD-10-PCS; principal; 2020-12-26)
DX: I11.0 Hypertensive heart disease with heart failure (principal); I50.21 Acute systolic (congestive) heart failure; J96.01 Acute respiratory failure with hypoxia; E87.2 Acidosis; I47.2 Ventricular tachycardia; I44.7 Left bundle-branch block, unspecified; K27.9 Peptic ulcer, site unspecified, unspecified as acute or chronic, without hemorrhage or perforation; R82.71 Bacteriuria; I48.0 Paroxysmal atrial fibrillation; G47.33 Obstructive sleep apnea (adult) (pediatric); J44.9 Chronic obstructive pulmonary disease, unspecified; M19.90 Unspecified osteoarthritis, unspecified site; F32.9 Major depressive disorder, single episode, unspecified; F41.9 Anxiety disorder, unspecified; Z99.81 Dependence on supplemental oxygen; Z88.2 Allergy status to sulfonamides; Z88.8 Allergy status to other drugs, medicaments and biological substances; Z79.899 Other long term (current) drug therapy; Z90.49 Acquired absence of other specified parts of digestive tract; Z90.710 Acquired absence of both cervix and uterus; Z95.810 Presence of automatic (implantable) cardiac defibrillator; Z98.890 Other specified postprocedural states
CPT/HCPCS: 36415; 51702; 71045; 78452; 80048; 80053; 80069; 81001; 82550; 82803; 82947; 83605; 83735; 83880; 84484; 85025; 87077; 87086; 87186; 93005; 93010; 93017; 93289; 93308; 93321; 94644; 94660; 94760; 94761; 96374; 97110; 97116; 97161; 97530; 99285-25; A9270; A9500; J1650; J1940; J2060; J2785

== ENCOUNTER 2021-09-27 11:40 | Day surgery (SDC) | payer MEDICARE ==
[~2021-09-27] VITALS: Ht 165.1 cm; Wt 82.0 kg
[~2021-09-27 11:40] MED LIST changes: +FURO20 PO; +METO25 PO
--- NOTE | 2021-09-27 12:30 | NUR ---
09/27/21 1230 Melodie Decker FIRST ATTEMPT INFILTRATED.
--- NOTE | 2021-09-27 13:16 | NUR ---
09/27/21 1316 ALEXI JOHNSON OBSERVED BY [email or web address]
== END 2021-09-27 14:27 | disposition home or self-care (01) ==
LOC: ORSCSDS 11:40
PROVIDERS: Internal Medicine Gastroenterology
PROC: 0DB78ZX Excision of Stomach, Pylorus, Via Natural or Artificial Opening Endoscopic, Diagnostic (ICD-10-PCS; principal; 2021-09-27 13:00)
DX: K92.1 Melena (principal); K21.9 Gastro-esophageal reflux disease without esophagitis; R11.0 Nausea; K31.7 Polyp of stomach and duodenum; K29.60 Other gastritis without bleeding; G47.33 Obstructive sleep apnea (adult) (pediatric); I10 Essential (primary) hypertension; I50.9 Heart failure, unspecified; R73.03 Prediabetes; Z79.899 Other long term (current) drug therapy
CPT/HCPCS: 88305; 88341; 88342; A9270; J2370; J2704; J7120

== ENCOUNTER 2021-10-05 11:30 | Emergency (ER) | payer MEDICARE ==
[~2021-10-05] VITALS: Ht 165.1 cm; Wt 81.7 kg
[2021-10-05 12:18] LABS: BASOPHILS ABSOLUTE AUTO 0.04 K/mm3 (0.00-0.23); BASOPHILS PERCENT AUTO 0 % (0-2); EOSINOPHILS ABSOLUTE AUTO 0.02 K/mm3 (0.00-0.68); EOSINOPHILS PERCENT AUTO 0 % (0-6); Hematocrit 40.9 % (33.0-51.0); Hemoglobin 13.1 g/dL (11.5-16.0); IMMATURE GRAN ABSOLUTE AUTO 0.02 K/mm3 (0.00-0.10); IMMATURE GRAN PERCENT AUTO 0 % (0-1); LYMPHOCYTES ABSOLUTE AUTO 1.02 K/mm3 (0.84-5.20); LYMPHOCYTES PERCENT AUTO 11 % (21-46); MONOCYTES ABSOLUTE AUTO 0.54 K/mm3 (0.16-1.47); MONOCYTES PERCENT AUTO 6 % (4-13); Mean Corpuscular HGB 28.1 pg (26.0-34.0); Mean Corpuscular Volume 88 fL (80-100); Mean Platelet Volume 11.3 fL (9.1-12.4); NEUTROPHILS PERCENT AUTO 83 % (41-73); Platelet Count 193 K/mm3 (150-400); RDW Coefficient Variation 14.7 % (11.7-14.2); RDW Standard Deviation 47.7 fL (35.1-46.3); Red Blood Cell Count 4.67 M/mm3 (3.80-5.20); White Blood Cell Count 9.64 K/mm3 (4.00-11.30)
[2021-10-05 12:36] LABS: Albumin, Blood 3.5 g/dL (3.4-5.0); Albumin/Globulin Ratio 0.8 (0.8-1.8); Bun/Creatinine Ratio 15.7 (12.0-20.0); Creatinine, Blood 0.89 mg/dL (0.40-1.00); Globulin, Blood 4.2 g/dL (2.2-4.0); Potassium, Blood 3.2 mmol/L (3.5-5.5); Total Protein, Blood 7.7 g/dL (6.4-8.2)
[2021-10-05] MEDS ORDERED: ARIPIPRAZOLE2 M1 PO (15:09)
[2021-10-05] MEDS ORDERED: KLOR-CON 1010 ME7 PO (15:10)
== END 2021-10-05 17:41 | disposition home or self-care (01) ==
LOC: ER 11:30
PROVIDERS: Physician Assistant
DX: E87.6 Hypokalemia (principal); I10 Essential (primary) hypertension; J44.9 Chronic obstructive pulmonary disease, unspecified; Z88.2 Allergy status to sulfonamides; Z79.899 Other long term (current) drug therapy
CPT/HCPCS: 36415; 71045; 80053; 83880; 84484; 85025; 93005; 93010; 99285-25; A9270

== ENCOUNTER → 2022-02-28 | Outpatient (CLI) | payer MEDICARE ==
[~2022-02-28] MED LIST changes: +ARIPIPRAZOLE2 M1 PO; +KLOR-CON 1010 ME7 PO
[2022-03-02 11:03] LABS: Adenovirus F 40/41 Not Detected (NOT DETECT); Astrovirus Not Detected (NOT DETECT); Campylobacter Sp Not Detected (NOT DETECT); Cryptosporidium Not Detected (NOT DETECT); Cyclospora Cayetanensis Not Detected (NOT DETECT); E. Coli O157 Not Detected (NOT DETECT); Entamoeba Histolytica Not Detected (NOT DETECT); Enteroaggregative E. coli-EAEC Not Detected (NOT DETECT); Enteropathogenic E. coli-EPEC Not Detected (NOT DETECT); Enterotoxigenic E. coli-ETEC Detected (NOT DETECT); Giardia Lamblia Not Detected (NOT DETECT); Norovirus GI/GII Not Detected (NOT DETECT); Plesiomonas Shigelloides Not Detected (NOT DETECT); Rotavirus A Not Detected (NOT DETECT); Salmonella Sp Not Detected (NOT DETECT); Sapovirus Not Detected (NOT DETECT); Shiga Toxin-prod E. coli-STEC Not Detected (NOT DETECT); Shigella/Enteroin E. coli-EIEC Not Detected (NOT DETECT); Vibrio Cholerae Not Detected (NOT DETECT); Vibrio Sp Not Detected (NOT DETECT); Yersinia Enterocolitica Not Detected (NOT DETECT)
== END | disposition home or self-care (01) ==
LOC: LAB SHORT 18:00 → LAB FUT 02-22 11:40
PROVIDERS: Internal Medicine Gastroenterology
DX: R19.7 Diarrhea, unspecified (principal)
CPT/HCPCS: 87507

== ENCOUNTER 2022-03-20 10:56 | Observation (INO) | payer MEDICARE ==
[~2022-03-20] VITALS: Ht 165.1 cm; Wt 75.3 kg
[2022-03-20 12:06] LABS: Source, Urine Straight Cath
[2022-03-20 12:43] LABS: Influenza A, PCR NEGATIVE (NEGATIVE); Influenza B, PCR NEGATIVE (NEGATIVE); Resp Syncytial Virus, PCR NEGATIVE (NEGATIVE); SARS-Cov-2 (COVID-19) PCR, MMC NEGATIVE (NEGATIVE)
[2022-03-20 12:51] LABS: BASOPHILS ABSOLUTE AUTO 0.04 K/mm3 (0.00-0.23); BASOPHILS PERCENT AUTO 1 % (0-2); EOSINOPHILS ABSOLUTE AUTO 0.05 K/mm3 (0.00-0.68); EOSINOPHILS PERCENT AUTO 1 % (0-6); Hematocrit 40.5 % (33.0-51.0); IMMATURE GRAN ABSOLUTE AUTO 0.08 K/mm3 (0.00-0.10); IMMATURE GRAN PERCENT AUTO 2 % (0-1); LYMPHOCYTES ABSOLUTE AUTO 1.24 K/mm3 (0.84-5.20); LYMPHOCYTES PERCENT AUTO 28 % (21-46); MONOCYTES ABSOLUTE AUTO 0.39 K/mm3 (0.16-1.47); MONOCYTES PERCENT AUTO 9 % (4-13); Mean Corpuscular HGB 28.3 pg (26.0-34.0); Mean Corpuscular HGB Conc 32.1 g/dL (31.5-36.5); Mean Corpuscular Volume 88 fL (80-100); NEUTROPHILS ABSOLUTE AUTO 2.62 K/mm3 (1.96-9.15); NEUTROPHILS PERCENT AUTO 59 % (41-73); RDW Coefficient Variation 14.6 % (11.7-14.2); RDW Standard Deviation 46.1 fL (35.1-46.3); Red Blood Cell Count 4.59 M/mm3 (3.80-5.20); White Blood Cell Count 4.42 K/mm3 (4.00-11.30)
[2022-03-20 12:52] LABS: Albumin, Blood 3.6 g/dL (3.4-5.0); Albumin/Globulin Ratio 1.1 (0.8-1.8); Bilirubin, Total 0.5 mg/dL (0.1-1.0); Bun/Creatinine Ratio 20.7 (12.0-20.0); Creatinine, Blood 1.16 mg/dL (0.40-1.00); Globulin, Blood 3.3 g/dL (2.2-4.0); Magnesium, Blood 2.3 mg/dL (1.6-2.4); Potassium, Blood 3.8 mmol/L (3.5-5.5); Total Protein, Blood 6.9 g/dL (6.4-8.2)
[2022-03-20 12:59] LABS: International Normalized Ratio 1.01; Prothrombin Time Results 10.6 Sec (9.7-11.5)
[2022-03-20 13:03] LABS: Appearance, Urine Clear (Clear); Bilirubin, Urine Neg (Neg); Blood, Urine 2+ (Neg); Color, Urine Yellow (P-Yellow); Glucose Qualitative, Urine Neg (Neg); Ketones, Urine Neg (Neg); Leukocyte Esterase, Urine Neg (Neg); Nitrite, Urine Pos (Neg); Protein, Urine 1+ (Neg); Specific Gravity, Urine 1.025 (1.003-1.022); Urobilinogen, Urine NORM (Normal)
[2022-03-20 13:15] LABS: Bacteria Many /hpf; Hyaline Casts 0-2 /lpf (0-2); Red Blood Cells, Urine 0-2 /hpf (0-2); Squamous Epithelial Cells Rare /hpf (Few)
[2022-03-20 13:44] LABS: Platelet Count 188 K/mm3 (150-400)
--- NOTE | 2022-03-20 19:16 | NUR ---
SHIFT SUMMARY PT AXO, PLEASANT AND COOPERATIVE WITH CARE. ADMITTED THIS SHIFT. HEPARIN GTT INFUSING PER EMAR. SALINE ALSO INFUSING PER EMAR. VSS. ADMISSION PROCESS COMPLETED WITH PATIENT AND DAUGHTER. PT DENIES PAIN, CHEST PAIN, SOB AND NV. CPAP ORDERED PER DR DINH. REPORT GIVEN TO TIMING INSPECTOR NURSE WHO ASSUMES CARE AT THIS TIME. BED IN LOW POSITION, CALL LIGHT WITHIN REACH.
--- NOTE | 2022-03-21 04:07 | NUR ---
SHIFT SUMMARY PATIENT IS ALERT AND ORIENTED. PATIENT HAS BEEN PLEASENT AND COOPERATIVE WITH CARE. PATIENT HAS NOT HAD ANY ACUTE EVENTS THIS SHIFT. VITAL SIGNS REVIEWED. PATIENT HAS NOT COMPLAINED OF PAIN, NAUSEA, SOB OR VOMMITING THIS SHIFT. PATIENT DENIES CHEST PAIN. PATIENT HAS BEEN RESTING THIS SHIFT WHILE WEARING CPAP AT NIGHT. PATIENT HAS BEEN HAVING HEPARIN RUN THIS SHIFT AND TITRATING PER PHARMACY ORDERS. BED IN LOCKED AND LOWEST POSITION. CALL LIGHT IN REACH. WILL MONITOR UNTIL SHIFT CHANGE.
[2022-03-21 04:45] LABS: Hematocrit 35.1 % (33.0-51.0); Hemoglobin 11.4 g/dL (11.5-16.0); Mean Corpuscular HGB 29.2 pg (26.0-34.0); Mean Corpuscular HGB Conc 32.5 g/dL (31.5-36.5); Mean Corpuscular Volume 90 fL (80-100); Mean Platelet Volume 11.9 fL (9.1-12.4); Platelet Count 184 K/mm3 (150-400); RDW Coefficient Variation 14.5 % (11.7-14.2); White Blood Cell Count 3.77 K/mm3 (4.00-11.30)
[2022-03-21 05:01] LABS: Bun/Creatinine Ratio 21.8 (12.0-20.0); Calcium, Blood 8.3 mg/dL (8.5-10.1); Creatinine, Blood 1.01 mg/dL (0.40-1.00); Potassium, Blood 3.7 mmol/L (3.5-5.5)
--- NOTE | 2022-03-21 07:27 | NUR ---
CONSULT CALLED CALLED DR JIM AND INFORMED HER OF CONSULT REQUEST.
[2022-03-21 07:58] LABS: Cholesterol 174 mg/dL (50-200); HDL Cholesterol 43 mg/dL (>39); LDL/HDL RATIO 2.5; Low Density Lipoprotein Chol 107 mg/dL (0-110); Triglycerides 122 mg/dL (30-160); Very Low Density Lipoprot Chol 24 mg/dL (6-32)
--- NOTE | 2022-03-21 09:57 | NUR ---
RN NOTE PT NOT ON TELEMETRY. DR TALLEY CALLED. TELEMETRY ORDERED.
--- NOTE | 2022-03-21 11:01 | NUR ---
Spiritual Care Request Pt. is awake in bed and welcomes my visit. Pt. is pleasant but unsettled by the relatively recent loss of her . With pastoral care facilitated a life review. Pt. displayed evidence of genuine grief balance by her strong derrick. Established rapport with a calming presence. Pt. requested that this director water and waste services visit her sister who is also currently a Pt. Prayed with Pt. Pt. verbalized gratitude for the spiritual care visit. Pt. requested the possiblity o fvisiting her sister. This director water and waste services reported the visit request to Pts. nurse, and the two of us visited the sister in [place].
--- NOTE | 2022-03-21 11:53 | NUR ---
RN AM NOTE MS GUDINO IS TIRED TODAY. DENIES CHEST PAIN OR SOB. ON TELEMETRY A-PACED AT 60BPM. HEPARIN GTT CONTINUES AT 11U/HR. AWAITING CARDIOLOGY CONSULT. INCONTINENT OF URINE, WEARING DEPENDS. BED LOW, CALL LIGHT IN REACH
--- NOTE | 2022-03-21 14:27 | NUR ---
RN NOTE HEPARIN RATE ADJUSTMENT TO 10UNITS/KG/HR BY DONELL TORRES RN DURING LUNCH BREAK (1330-1400HRS). NEXT PTT ORDERED FOR 2000HRS. PT ASSISTED UP TO CHAIR AFTER LUNCH, 1 PERSON ASSIST WITH GAIT BELT ON. SHE SAT OUT FOR PERHAPS AN HOUR THEN FELT TIRED AND WEAK. C/O RECENT OVERALL DECLINE IN HEALTH AT HOME, NEEDING ASSISTANCE HELPING WITH TOILETING, MAKING MEALS AND GETTING AROUND HER HOME. SHE SAID HER FAMILY ARE DISCUSSING HOME CARE OPTIONS, PERHAPS HER DAUGHTER MIGHT GO TO LIVE WITH HER. SHE SAID SHE HAS HAD FALLS AT HOME DUE TO LOSING HER BALANCE AND WEAKNESS.
--- NOTE | 2022-03-21 16:37 | NUR ---
SHIFT SUMMARY PLEASE SEE PRIOR RN NOTES MS GUDINO HAS NOT HAD ANY CHEST PAIN TODAY. SHE DOES HAVE NITRO PASTE ON. NO SOB ON ROOM AIR. C/O WEAKNESS, UP TO CHAIR X 1 WITH 1 PERSON ASSIST AND GAIT BELT. INCONTINENT OF URINE, DRIBBLING FREQUENT INCONTINENCE. NO DIARRHEA THIS SHIFT. HEPARIN GTT CONTINUES, AT 10U/KG/HR. BED LOW, CALL LIGHT IN REACH.
--- NOTE | 2022-03-21 18:28 | NUR ---
HEPARIN GTT DISCONTINUED.
--- NOTE | 2022-03-21 18:43 | NUR ---
RN NOTE PT ARRIVED ON MEDICAL FLOOR FROM PCU AT 1814. WITH HIM. TRANSFERED INTO RECLINER AND RELAXING ON ROOM AIR. RN SAID PT SHOULD BE ON 2L NC FOR ANY EXERTION.
--- NOTE | 2022-03-22 04:45 | NUR ---
SHIFT SUMMARY PATIENT IS ALERT AND ORIENTED 2-3. PATIENT HAS HAD NO ACUTE EVENTS THIS SHIFT. VITAL SIGNS REVIEWED. PATIENT HAS BEEN RESTING MOST OF SHIFT. PATIENT HAS BEEN WEARING 2L NC AT NIGHT. CONT BIOX IS SHOWING SATTING 95 ABOVE. PATIENT HAS NOT COMPLAINED OF PAIN, NAUSEA, SOB OR VOMITTING THIS SHIFT. BED IN LOCKED AND LOWEST POSITION. CALL LIGHT IN PLACE. WILL MONITOR UNTIL SHIFT CHANGE.
[2022-03-22 04:57] LABS: Hematocrit 33.7 % (33.0-51.0); Hemoglobin 10.7 g/dL (11.5-16.0); Mean Corpuscular HGB 28.8 pg (26.0-34.0); Mean Corpuscular HGB Conc 31.8 g/dL (31.5-36.5); Mean Corpuscular Volume 91 fL (80-100); Platelet Count 171 K/mm3 (150-400); RDW Coefficient Variation 14.6 % (11.7-14.2); RDW Standard Deviation 49.1 fL (35.1-46.3); Red Blood Cell Count 3.72 M/mm3 (3.80-5.20); White Blood Cell Count 4.35 K/mm3 (4.00-11.30)
[2022-03-22 05:41] LABS: Albumin, Blood 2.9 g/dL (3.4-5.0); Anion Gap 6 mmol/L (6-16); Blood Urea Nitrogen 20 mg/dL (8-24); Bun/Creatinine Ratio 21.1 (12.0-20.0); CO2, Blood 23 mmol/L (21-32); Calcium, Blood 8.4 mg/dL (8.5-10.1); Chloride, Blood 115 mmol/L (98-108); Creatinine, Blood 0.95 mg/dL (0.40-1.00); Glomerular Filtration Rate 58 (60-); Glucose, Blood 96 mg/dL (70-99); Potassium, Blood 3.8 mmol/L (3.5-5.5); Sodium, Blood 144 mmol/L (136-145)
[2022-03-22] MEDS ORDERED: ASPI81CH PO (11:52)
[2022-03-22] MEDS ORDERED: Isosorbide Mono30 MG PO (11:53)
--- NOTE | 2022-03-22 13:50 | NUR ---
DISCHARGE DISCHARGE INSTRUCTIONS AND MEDICATIONS REVIEWED WITH PT AND HER DAUGHTER. QUESTIONS/CONCERNS ANSWERED. PT AND DAUGHTER VERBALLY INDICATED UNDERSTANDING OF ALL INSTRUCTIONS RECEIVED. ESCORTED OUT VIA W/C BY CAROLYN
== END 2022-03-22 13:52 | disposition home or self-care (01) ==
LOC: ER 10:56 → MEDS 10:57
PROVIDERS: Internal Medicine; Nurse Practitioner Acute Care; Student in an Organized Health Care Education/Training Program; ADMIT Hospitalist
DX: R07.89 Other chest pain (principal); I13.0 Hypertensive heart and chronic kidney disease with heart failure and stage 1 through stage 4 chronic kidney disease, or unspecified chronic kidney disease; I50.32 Chronic diastolic (congestive) heart failure; N18.30 Chronic kidney disease, stage 3 unspecified; I48.0 Paroxysmal atrial fibrillation; A49.8 Other bacterial infections of unspecified site; G47.33 Obstructive sleep apnea (adult) (pediatric); Z95.810 Presence of automatic (implantable) cardiac defibrillator; Z88.2 Allergy status to sulfonamides; Z88.8 Allergy status to other drugs, medicaments and biological substances; Z79.899 Other long term (current) drug therapy; Z20.822 Contact with and (suspected) exposure to COVID-19
CPT/HCPCS: 0241U; 36415; 71045; 80048; 80053; 80061; 80069; 81001; 83036; 83690; 83735; 83880; 84484; 85025; 85027; 85520; 85610; 85730; 87077; 87086; 87186; 93005; 93010; 94762; 96361; 96366; A9270; G0378; J1644; J3475; J7030; P9612